=== PATIENT | male | born 1980 | race Caucasian/White ===

== ENCOUNTER 2017-08-13 14:40 | Emergency (ER) | payer OTHER ==
[~2017-08-13] VITALS: Ht 177.8 cm; Wt 70.3 kg
[~2017-08-13 14:40] MED LIST: MEDROLDOSEPACK PO; MOBIC15 MG PO; NORCO 5-325 TA1 EACH PO; PERCOCET 5-3251 EACH PO; ROBAXIN500 MG PO
[2017-08-13] MEDS ORDERED: NOHOMEMEDICATIONS (15:09)
[2017-08-13] MEDS ORDERED: PERCOCET 5-3251 EACH PO (16:31)
[2017-08-13] MEDS ORDERED: KEFLEX500 M1 PO (17:16)
[2017-08-13 17:20] VITALS: BP 129/77
== END 2017-08-13 17:23 | disposition home or self-care (01) ==
LOC: M.ERS 14:40
DX: S62.391A Other fracture of second metacarpal bone, left hand, initial encounter for closed fracture (principal); F17.200 Nicotine dependence, unspecified, uncomplicated; W22.01XA Walked into wall, initial encounter; Y93.89 Activity, other specified; Y92.89 Other specified places as the place of occurrence of the external cause; Y99.8 Other external cause status